=== PATIENT | male | born 1995 | race Caucasian/White ===

== ENCOUNTER 2016-08-11 20:15 | Emergency (ER) | payer BC ==
[2016-08-11] MEDS ORDERED: LORazepam 2 MG/ML MDV IVPUSH ONE (20:47)
[2016-08-11] MEDS ORDERED: Sodium Chloride 0.9% 1,000 ML IV ONE (20:47)
--- NOTE | 2016-08-11 20:47 | EDM.PDOC ---
ED HPI GENERAL MEDICAL PROBLEM - General Chief Complaint: Headache Stated Complaint: HEADACHE Time Seen by Provider: 08/11/16 20:45 Source of Information: Reports: Patient, Family History Limitations: Reports: No Limitations - History of Present Illness INITIAL COMMENTS - FREE TEXT/NARRATIVE: HISTORY AND PHYSICAL: []21-year-old male presenting with headache more to the left side of his head and eye History of Present Illness: [] Family history significant mother and father both had migraines He does feel nausea with this headache Denies any aura prior to the headache starting Significant other does state that he has had this about weekly for the last month Review of Systems: As per history of present illness and below otherwise all systems reviewed and negative. Past medical history: As per history of present illness and as reviewed below otherwise noncontributory. Surgical history: As per history of present illness and as reviewed below otherwise noncontributory. Social history: No reported history of drug or alcohol abuse. Family history: As per history of present illness and as reviewed below otherwise noncontributory. Physical exam: Alert and oriented gentleman does not look to be in severe distress he is not photophobic HEENT: Atraumatic, normocehpalic, pupils reactive, negative for conjunctival pallor or scleral icterus, mucous membranes moist, throat clear, neck supple, nontender, trachea midline. Palpation to his frontal and sinus areas improve the pain Lungs: Clear to auscultation, breath sounds equal bilaterally, chest non tender. Heart: S1S2, regular, negative for clicks, rubs, or JVD. Abdomen: Soft, nondistended, nontender. Negative for masses or hepatossplenmegaly. Negative for costovertebral tenderness. Pelvis: Stable nontender. Genitourinary: Deferred. Rectal: Deferred Extremities: Atraumatic, negative for cords or calf pain. Neurovascular unremarkable. Neuro: Awake, alert, oriented. Cranial nerves II through XII unremarkable. Cerebellum unremarkable. Motor and sensory unremarkable throughout. Exam nonfocal. Diagnostics: [] Therapeutics: [1 L normal saline, Benadryl Compazine, Toradol and Ativan,,] Impression: []Muscle contraction headache versus migraine Plan: [Home Sleep Referral to Dr. Mcgowan] Definitive disposition and diagnosis as appropriate pending reevaluation and review of above. Onset: Today, Sudden Duration: Hour(s): (4) Location: Reports: Head Headache Pain Score (Numeric/FACES): 5 - Related Data Allergies Allergy/AdvReac Type Severity Reaction Status Date / Time No Known Allergies Allergy Verified 08/11/16 20:18 Home Meds: Home Meds . [No Known Home Meds] 08/11/16 [History] Past Medical History HEENT History: Reports: None Cardiovascular History: Reports: None Respiratory History: Reports: None Gastrointestinal History: Reports: None Genitourinary History: Reports: None Musculoskeletal History: Reports: None Psychiatric History: Reports: None - Infectious Disease History Infectious Disease History: Reports: None - Past Surgical History HEENT Surgical History: Reports: None Cardiovascular Surgical History: Reports: None GI Surgical History: Reports: None Social & Family History - Tobacco Use Smoking Status *Q: Current Every Day Smoker Years of Tobacco use: 4 Packs/Tins Daily: 0.9 - Caffeine Use Caffeine Use: Reports: Coffee, Energy Drinks, Soda ED ROS GENERAL - Review of Systems Review Of Systems: ROS reveals no pertinent complaints other than HPI. - Physical Exam Exam: See Below (See dictation) Course - Vital Signs Last Recorded V/S: Last Vital Signs Temp 36.7 C 08/11/16 20:19 Pulse 99 08/11/16 20:19 Resp 20 08/11/16 20:19 BP 144/97 H 08/11/16 20:19 Pulse Ox 99 08/11/16 20:19 - Orders/Labs/Meds Orders: Active Orders 24 hr Category Date Time Status Ondansetron [Zofran] Med 08/11/16 21:31 Once 4 mg IVPUSH ONETIME ONE Sodium Chloride 0.9% [Normal Saline] 1,000 ml Med 08/11/16 20:47 Active IV STAT Medication Orders Sodium Chloride (Normal Saline) 1,000 mls @ 999 mls/hr IV STAT ONE Stop: 08/11/16 21:47 Last Admin: 08/11/16 21:01 Dose: 999 mls/hr Meds: Medications Generic Name Dose Route Start Last Admin Trade Name Freq PRN Reason Stop Dose Admin Sodium Chloride 1,000 mls @ 999 mls/hr 08/11/16 20:47 08/11/16 21:01 Normal Saline IV 08/11/16 21:47 999 mls/hr STAT ONE Administration Discontinued Medications Generic Name Dose Route Start Last Admin Trade Name Stacey PRN Reason Stop Dose Admin Diphenhydramine HCl 25 mg 08/11/16 20:48 08/11/16 21:04 Benadryl IVPUSH 08/11/16 20:49 25 mg ONETIME ONE Administration Prochlorperazine Edisylate 10 52 mls @ 150 mls/hr 08/11/16 20:48 mg/ Sodium Chloride IV 08/11/16 21:08 ONETIME ONE Ketorolac Tromethamine 60 mg 08/11/16 20:48 08/11/16 21:15 Toradol IM 08/11/16 20:49 60 mg ONETIME ONE Administration Ketorolac Tromethamine Confirm 08/11/16 21:23 08/11/16 21:26 Toradol Administered 08/11/16 21:24 Not Given Dose 60 mg .ROUTE .STK-MED ONE Lorazepam 1 mg 08/11/16 20:47 08/11/16 21:06 Ativan IVPUSH 08/11/16 20:48 1 mg ONETIME ONE Administration Morphine Sulfate 2 mg 08/11/16 21:29 Morphine IV 08/11/16 21:30 ONETIME ONE Departure - Departure Time of Disposition: 21:32 Disposition: Home, Self-Care 01 Condition: Good Clinical Impression: Migraine - Discharge Information Instructions: Recurrent Migraine Headache, [id number] Referrals: PCP,None [Primary Care Provider] - Saray Mcgowan MD [Physician] - Forms: ED Department Discharge Additional Instructions: The following information is given to patients seen in the emergency department who are being discharged to home. This information is to outline your options for follow-up care. We provide all patients seen in our emergency department with a follow-up referral. The need for follow-up, as well as the timing and circumstances, are variable depending upon the specifics of your emergency department visit. If you don't have a primary care physician on staff, we will provide you with a referral. We always advise you to contact your personal physician following an emergency department visit to inform them of the circumstance of the visit and for follow-up with them and/or the need for any referrals to a consulting specialist. The emergency department will also refer you to a specialist when appropriate. This referral assures that you have the opportunity for followup care with a specialist. All of these measure are taken in an effort to provide you with optimal care, which includes your followup. Under all circumstances we always encourage you to contact your private physician who remains a resource for coordinating your care. When calling for followup care, please make the office aware that this follow-up is from your recent emergency room visit. If for any reason you are refused follow-up, please contact the [facility] emergency department at and asked to speak to the emergency department charge nurse. Referral has been made for you to see Dr. Saray Mcgowan local neurologist [facility] - Neurology Professional Building [address] [place] [address], [address] [place] [address] - My Orders Last 24 Hours: My Active Orders 08/11/16 20:47 Sodium Chloride 0.9% [Normal Saline] 1,000 ml IV STAT 08/11/16 21:31 Ondansetron [Zofran] 4 mg IVPUSH ONETIME ONE - Assessment/Plan Last 24 Hours: My Active Orders 08/11/16 20:47 Sodium Chloride 0.9% [Normal Saline] 1,000 ml IV STAT 08/11/16 21:31 Ondansetron [Zofran] 4 mg IVPUSH ONETIME ONE
[2016-08-11] MEDS ORDERED: diphenhydrAMINE 50 MG/ML SDV IVPUSH ONE (20:48)
[2016-08-11] MEDS ORDERED: Ketorolac 60 MG/2 ML SDV IM ONE (20:48)
[2016-08-11] MEDS ORDERED: Prochlorperazine 10 MG in Sodium Chloride 0.9% 50 ML IV ONE (20:48)
[2016-08-11] MEDS ORDERED: Ketorolac 60 MG/2 ML SDV ONE (21:23)
[2016-08-11] MEDS ORDERED: Morphine 10 MG/ML Syringe IV ONE (21:29)
[2016-08-11] MEDS ORDERED: Ondansetron 4 MG/2 ML SDV IVPUSH ONE (21:31)
== END 2016-08-11 22:00 | disposition home or self-care (01) ==
LOC: MW.ED 20:15
DX: G43.909 Migraine, unspecified, not intractable, without status migrainosus (principal); F17.210 Nicotine dependence, cigarettes, uncomplicated
CPT/HCPCS: 96361; 96372; 96374; 96375; 99283; J1200; J1885; J2060; J2270; J2405; J7040; 99284

== ENCOUNTER 2017-08-05 19:06 | Emergency (ER) | payer BC ==
[2017-08-05 19:45] VITALS: BP 134/72
--- NOTE | 2017-08-05 19:47 | EDM.PDOC ---
ED HPI GENERAL MEDICAL PROBLEM - General Chief Complaint: Lower Extremity Injury/Pain Stated Complaint: LT ANKLE HURTS Time Seen by Provider: 08/05/17 19:40 - History of Present Illness INITIAL COMMENTS - FREE TEXT/NARRATIVE: HISTORY AND PHYSICAL: History of present illness: The patient is a 22-year-old male who was skateboarding today and fell with his ankle and foot behind him and he landed on it. This occurred about 45 minutes ago and complains of pain at his right ankle. He has no neurosensory changes in his foot and no proximal leg knee or hip pain. He did not hit his head pass out or blackout. He has never injured this ankle before. He last ate food at lunchtime and had some water prior to arrival. He did not take any medications for the pain prior to coming here. The patient says the foot does not hurt Review of systems: As per history of present illness and below otherwise all systems reviewed and negative. Past medical history: As per history of present illness and as reviewed below otherwise noncontributory. Surgical history: As per history of present illness and as reviewed below otherwise noncontributory. Social history: No reported history of drug or alcohol abuse. Family history: As per history of present illness and as reviewed below otherwise noncontributory. Physical exam: General: Well-developed well-nourished man who is nontoxic and vital signs are noted by me. HEENT: Atraumatic, normocephalic, negative for conjunctival pallor or scleral icterus, mucous membranes moist, throat clear, neck supple, nontender, trachea midline. There are no midline step-offs tenderness defects of the cervical spine and no scalp tenderness or defects/deformities Lungs: Clear to auscultation, breath sounds equal bilaterally, chest nontender. Heart: S1S2, regular rate and rhythm no overt murmurs Abdomen: Soft, nondistended, nontender. NABS Pelvis: Stable nontender. No lateral hip tenderness on the right Genitourinary: Deferred. Rectal: Deferred. Extremities: Atraumatic with full range of motion of all extremities with the exception of the right ankle and foot. At the right ankle there is diffuse circumferential swelling and a superficial abrasion on the medial malleolus. There is ecchymosis extending into the dorsal aspect of the foot laterally but there is no bony tenderness in this region. Pulses are intact toes are normal color and there is good cap refill. There is no proximal tib-fib tenderness knee thigh or hip tenderness. There is diffuse tenderness at the ankle and it is difficult to evaluate clinically if there is joint malalignment due to the soft tissue swelling. The legs are, negative for cords or calf pain. Neurovascular unremarkable. Neuro: Awake, alert, oriented. Cranial nerves II through XII unremarkable. Cerebellum unremarkable. Motor and sensory unremarkable throughout. Exam nonfocal. Back: There are no midline step-offs tenderness defects of the thoracic lumbar spine no posterior rib tenderness Diagnostics: X-ray of right ankle, foot, 1 view right tib-fib Therapeutics: Ice pack and elevation, patient initially deferred pain meds Short-leg post mold and crutches 2027: Case was discussed with Dr. Bess Faye our orthopedic surgeon and she would like a short-leg post mold crutches and follow-up in the clinic next week with . The patient has been shown his x-rays and is aware of the care plan and I will write him for pain medications for home as well. He understands he is nonweightbearing Impression: Minimally displaced mildly comminuted fracture of the distal diaphysis of the right fibula Definitive disposition and diagnosis as appropriate pending reevaluation and review of above. Left Lower Ankle Pain Score (Numeric/FACES): 4 - Related Data Allergies Allergy/AdvReac Type Severity Reaction Status Date / Time No Known Allergies Allergy Verified 08/05/17 19:24 Home Meds: Home Meds . [No Known Home Meds] 08/11/16 [History] Past Medical History - Past Health History Medical/Surgical History: Denies Medical/Surgical History HEENT History: Reports: None Cardiovascular History: Reports: None Respiratory History: Reports: None Gastrointestinal History: Reports: None Genitourinary History: Reports: None Musculoskeletal History: Reports: None Psychiatric History: Reports: None - Infectious Disease History Infectious Disease History: Reports: None - Past Surgical History HEENT Surgical History: Reports: None Cardiovascular Surgical History: Reports: None GI Surgical History: Reports: None Social & Family History - Family History Family Medical History: Noncontributory - Tobacco Use Smoking Status *Q: Current Every Day Smoker Years of Tobacco use: 4 Packs/Tins Daily: 0.5 - Caffeine Use Caffeine Use: Reports: Coffee - Recreational Drug Use Recreational Drug Use: Yes Drug Use in Last 12 Months: Yes Recreational Drug Type: Reports: Marijuana/Hashish Review of Systems - Review of Systems Review Of Systems: ROS reveals no pertinent complaints other than HPI. ED EXAM, GENERAL - Physical Exam Exam: See Below (See dictation) Course - Vital Signs Last Recorded V/S: Last Vital Signs Temp 37.1 C 08/05/17 19:26 Pulse 91 08/05/17 19:26 Resp 16 08/05/17 19:26 BP 134/72 08/05/17 19:26 Pulse Ox 99 08/05/17 19:26 - Orders/Labs/Meds Orders: Active Orders 24 hr Category Date Time Status Ankle Min 3V Rt [CR] Stat Exams 08/05/17 19:44 Taken Foot 2V Rt [CR] Stat Exams 08/05/17 19:44 Taken Tibia Fibula Rt [CR] Stat Exams 08/05/17 19:44 Taken DME for Discharge [COMM] Stat Oth 08/05/17 20:30 Ordered Departure - Departure Time of Disposition: 20:33 Disposition: Home, Self-Care 01 Condition: Good Clinical Impression: Fracture, fibula Qualifiers: Encounter type: initial encounter Fibula location: distal Fracture type: closed Fracture morphology: unspecified fracture morphology Laterality: right Qualified Code(s): S82.831A - Other fracture of upper and lower end of right fibula, initial encounter for closed fracture - Discharge Information Referrals: PCP,None [Primary Care Provider] - Forms: ED Department Discharge Additional Instructions: The following information is given to patients seen in the emergency department who are being discharged to home. This information is to outline your options for follow-up care. We provide all patients seen in our emergency department with a follow-up referral. The need for follow-up, as well as the timing and circumstances, are variable depending upon the specifics of your emergency department visit. If you don't have a primary care physician on staff, we will provide you with a referral. We always advise you to contact your personal physician following an emergency department visit to inform them of the circumstance of the visit and for follow-up with them and/or the need for any referrals to a consulting specialist. The emergency department will also refer you to a specialist when appropriate. This referral assures that you have the opportunity for followup care with a specialist. All of these measure are taken in an effort to provide you with optimal care, which includes your followup. Under all circumstances we always encourage you to contact your private physician who remains a resource for coordinating your care. When calling for followup care, please make the office aware that this follow-up is from your recent emergency room visit. If for any reason you are refused follow-up, please contact the [facility] emergency department at and ask to speak to the emergency department charge nurse. [facility]--Orthopedic clinic Professional Building [address] [place] [id number] Ice and elevate the area as much as possible and do not weight-bear. Leave splint that is placed in the ED on into you follow-up in the clinic and use crutches at all times. Use [id number] ibuprofen for pain and at the stronger pain medications you have been prescribed as needed. Return to ER as needed and as discussed. Please call the orthopedics clinic at 8 AM on Tuesday for follow-up appointment with Dr. Vincent. - My Orders Last 24 Hours: My Active Orders 08/05/17 19:44 Ankle Min 3V Rt [CR] Stat Foot 2V Rt [CR] Stat Tibia Fibula Rt [CR] Stat 08/05/17 20:30 DME for Discharge [COMM] Stat - Assessment/Plan Last 24 Hours: My Active Orders 08/05/17 19:44 Ankle Min 3V Rt [CR] Stat Foot 2V Rt [CR] Stat Tibia Fibula Rt [CR] Stat 08/05/17 20:30 DME for Discharge [COMM] Stat
--- NOTE | 2017-08-08 09:30 | CR ---
EXAM DATE: 08/05/17 PATIENT'S AGE: 22 Patient: HUGO CHAPPELL Facility: [place], [place] Site . Site : 1995 Study: XRay Extremity Right [id number]/22/2018 8:03:12 PM Ordering Physician: Poly Long Final Report: Indication: Lower leg injury Technique: Three views right ankle Comparison: None Findings: Bones: Minimally displaced mildly comminuted fracture of the distal diaphysis of the right fibula. Mild surrounding soft tissue swelling. Joint spaces: Unremarkable. Soft tissues: Unremarkable. Impression: Minimally displaced mildly comminuted fracture of the distal diaphysis of the right fibula. Dictated by Beatriz Norris MD @ Aug 05 2017 8:16PM (Electronic Signature) Report Signed by Proxy. TORI
--- NOTE | 2017-08-08 09:31 | CR ---
EXAM DATE: 08/05/17 PATIENT'S AGE: 22 Patient: HUGO CHAPPELL Facility: [place], [place] Site . Site : 1995 Study: XRay Extremity Right [id number]/22/2018 8:03:54 PM Ordering Physician: Poly Long Final Report: Indication: Fibular fracture Technique: Frontal view right tibia and fibula Comparison: Correlation with ankle radiographs performed at the same time Findings/impression: Frontal view of the right tibia and fibula do not include the medial aspect of the medial malleolus and the lateral aspect of the lateral malleolus. A mildly displaced fracture through the distal diaphysis of the right fibula again noted. No additional fracture identified. Dictated by Beatriz Norris MD @ Aug 05 2017 8:56PM (Electronic Signature) Report Signed by Proxy. TORI
--- NOTE | 2017-08-08 09:32 | CR ---
EXAM DATE: 08/05/17 PATIENT'S AGE: 22 Patient: HUGO CHAPPELL Facility: [place], [place] Site . Site : 1995 Study: XRay Extremity Right [id number]/22/2018 8:04:23 PM Ordering Physician: Poly Long Final Report: Indication: Injury Technique: Two views right foot Comparison: None Findings: Bones: Alignment is normal. No fractures or bone lesions within the right foot. There is partial visualization of a distal right fibular fracture. Joint spaces: Unremarkable. Soft tissues: Unremarkable. Impression: No foot fracture or subluxation Partial visualization of a distal right fibular fracture Dictated by Beatriz Norris MD @ Aug 05 2017 8:17PM (Electronic Signature) Report Signed by Proxy. TORI
== END 2017-08-05 21:05 | disposition home or self-care (01) ==
LOC: MW.ED 19:06
DX: S82.831A Other fracture of upper and lower end of right fibula, initial encounter for closed fracture (principal); V00.131A Fall from skateboard, initial encounter; F17.210 Nicotine dependence, cigarettes, uncomplicated
CPT/HCPCS: 73590-26-RT; 73590-RT; 73610-26-RT; 73610-RT; 73620-26-RT; 73620-RT; 99283

== ENCOUNTER 2017-08-10 12:55 | Day surgery (SDC) | payer BC ==
[~2017-08-10 12:55] MED LIST: Lactated Ringers 1,000 ML IV SCH; ceFAZolin 2 GM in Premix Bag 1 BAG IV SCH
[2017-08-10] MEDS ORDERED: Propofol 200 MG/20 ML SDV ONE (14:03)
[2017-08-10] MEDS ORDERED: Midazolam 1 MG/ML 2 ML SDV ONE (14:03)
[2017-08-10] MEDS ORDERED: fentaNYL 100 MCG/2 ML SDV ONE (14:03)
[2017-08-10] MEDS ORDERED: fentaNYL 250 MCG/5 ML SDV ONE (14:03)
[2017-08-10] MEDS ORDERED: Ketorolac 30 MG/ML SDV ONE (14:04)
[2017-08-10] MEDS ORDERED: Ondansetron 4 MG/2 ML SDV ONE (14:04)
[2017-08-10] MEDS ORDERED: HYDROmorphone 2 MG/ML SDV ONE (14:08)
--- NOTE | 2017-08-10 14:12 | PCM.PREANE ---
Preanesthetic Assessment - Anesthesia/Transfusion/Family Hx Anesthesia History: No Prior Anesthesia Family History of Anesthesia Reaction: No Transfusion History: No Prior Transfusion(s) Intubation History: Unknown - Review of Systems General: No Symptoms Pulmonary: No Symptoms Cardiovascular: No Symptoms Gastrointestinal: No Symptoms Neurological: No Symptoms Other: Reports: None - Physical Assessment Height: 1.75 m Weight: 74.843 kg ASA Class: 2 Mental Status: Alert & Oriented x3 Airway Class: Mallampati = 2 Dentition: Reports: Normal Dentition (bad dentition) Thyro-Mental Finger Breadths: 3 Mouth Opening Finger Breadths: 3 ROM/Head Extension: Full Lungs: Clear to Auscultation, Normal Respiratory Effort Cardiovascular: Regular Rate, Regular Rhythm - Allergies Allergies/Adverse Reactions: Allergies Allergy/AdvReac Type Severity Reaction Status Date / Time No Known Allergies Allergy Verified 08/08/17 16:43 - Blood Blood Available: No - Anesthesia Plan Pre-Op Medication Ordered: None - Acknowledgements Anesthesia Type Planned: General Anesthesia Pt an Appropriate Candidate for the Planned Anesthesia: Yes Alternatives and Risks of Anesthesia Discussed w Pt/Guardian: Yes Pt/Guardian Understands and Agrees with Anesthesia Plan: Yes PreAnesthesia Questionnaire - Past Health History Medical/Surgical History: Denies Medical/Surgical History HEENT History: Reports: None Cardiovascular History: Reports: None Respiratory History: Reports: None Gastrointestinal History: Reports: None Genitourinary History: Reports: None Musculoskeletal History: Reports: Other (See Below) (high right fibula fx) Neurological History: Reports: Migraines Psychiatric History: Reports: None - Infectious Disease History Infectious Disease History: Reports: None - Past Surgical History HEENT Surgical History: Reports: None Cardiovascular Surgical History: Reports: None GI Surgical History: Reports: None - SUBSTANCE USE Smoking Status *Q: Current Every Day Smoker (1< ppd) Tobacco Use Within Last Twelve Months: Cigarettes Recreational Drug Use History: No - HOME MEDS Home Medications: Home Meds Hydrocodone/Acetaminophen [[place] 7.5-325 Tablet] 1 tab PO ASDIRECTED PRN [History] - CURRENT (IN HOUSE) MEDS Current Meds: Current Medications Lactated Ringer's (Ringers, Lactated) 1,000 mls @ 125 mls/hr IV ASDIRECTED JENNIFER Cefazolin Sodium/Dextrose 2 gm (/ Premix) 50 mls @ 50 mls/hr IV ONETIME JENNIFER Discontinued Medications Fentanyl (Sublimaze) Confirm Administered Dose 100 mcg .ROUTE .STK-MED ONE Stop: 08/10/17 14:04 Fentanyl (Sublimaze) Confirm Administered Dose 250 mcg .ROUTE .STK-MED ONE Stop: 08/10/17 14:04 Lidocaine HCl (Xylocaine-Mpf 1%) Confirm Administered Dose 10 mls @ as directed .ROUTE .STK-MED ONE Stop: 08/10/17 14:05 Ketorolac Tromethamine (Toradol) Confirm Administered Dose 30 mg .ROUTE .STK- MED ONE Stop: 08/10/17 14:05 Midazolam HCl (Versed 1 Mg/Ml) Confirm Administered Dose 2 mg .ROUTE .STK-MED ONE Stop: 08/10/17 14:04 Ondansetron HCl (Zofran) Confirm Administered Dose 4 mg .ROUTE .STK-MED ONE Stop: 08/10/17 14:05 Propofol (Diprivan 20 Ml) Confirm Administered Dose 400 mg .ROUTE .STK-MED ONE Stop: 08/10/17 14:04
[2017-08-10] MEDS ORDERED: Neostigmine Methylsulfate 1 MG/ML 5 ML Syringe ONE (14:29)
[2017-08-10] MEDS ORDERED: Glycopyrrolate 0.2 MG/ML SDV ONE (14:29)
[2017-08-10] MEDS ORDERED: fentaNYL 100 MCG/2 ML SDV IVPUSH PRN (16:06)
--- NOTE | 2017-08-10 16:18 | PCM.OPNOTE ---
- General Post-Op/Procedure Note Date of Surgery/Procedure: 08/10/17 Operative Procedure(s): ORIF right ankle lateral malleolus and syndesmosis Findings: comminution Pre Op Diagnosis: right ankle lateral malleolus fx with syndesmotic disruption Post-Op Diagnosis: same Anesthesia Technique: General LMA Primary Surgeon: Moody Hernandez Mai Automatic Folder Seamer: Inez Schmidt EBL in mLs: 10 Complications: none Condition: Good
[2017-08-10] MEDS ORDERED: Acetaminophen/HYDROcodone 325-5 MG Tab ONE (16:20)
--- NOTE | 2017-08-10 17:08 | OR ---
SURGEON: Moody Vincent MD DATE OF PROCEDURE: 08/10/2017 WAIVER ANALYST: Inez Schmidt PA-C. PREOPERATIVE DIAGNOSIS: Right ankle lateral malleolus fracture with syndesmotic disruption. POSTOPERATIVE DIAGNOSIS: Right ankle lateral malleolus fracture with syndesmotic disruption. OPERATION PERFORMED: Open reduction internal fixation, right ankle lateral malleolus and syndesmosis. ANESTHESIA: General with LMA. COMPLICATIONS: None . ESTIMATED BLOOD LOSS: 10 mL. TOURNIQUET TIME: 21 minutes. SPECIMENS: None. IMPLANTS: Evangelina 9 hole 1/3rd tubular plate, one 3.5 interfragmentary screw, five 3.5 cortical screws, and one 4-0 cancellous screw, and Dea ZipTight ankle syndesmotic fixation device. INDICATIONS: Patient is a 22-year-old male who broke his ankle skateboarding. Due to displacement and syndesmotic disruption, I recommended operative fixation. He wished to undergo surgery. He understands the risks, benefits, complications of procedure including but not limited to infection, neurovascular injury, continued pain, malunion, nonunion, superficial peroneal nerve injury, and he wished to proceed. PROCEDURE IN DETAIL: The patient was seen in the preoperative area. The operative site was marked. The patient was transferred to operating room, and placed supine on the operative table. General anesthesia was induced and LMA was placed. He received preop antibiotics, Ancef. Splint was removed. A well-padded upper thigh tourniquet was placed. The right leg was prepped and draped in sterile fashion using alcohol followed by ChloraPrep. A formal time-out was taken, identifying the correct patient, procedure, and extremity. Limb was exsanguinated with an Esmarch bandage. Tourniquet inflated to 250 mmHg. A 10 cm incision centered over the fibula was made starting at the tip of the lateral malleolus. Dissection carried down to subcutaneous tissues. The superficial peroneal nerve was found proximally, it was protected and pulled proximally. It had a branch that went off posteriorly and a very tiny branch across the distal aspect of the fibula, which was sacrificed and then subperiosteal dissection over the fibula was made. He had comminution of the fragment posteriorly and had an anterior inferior to posterior superior fracture. It was very long and proximal 2/3rd was broken. The fracture was curetted out, irrigated, and a reduction clamp was used to reduce it anatomically. An interfragmentary screw was placed after drilling 3.5 and 2.5 drill bits with 2.5 cortical screw. A 9- hole plate was then placed on it laterally. Proximal and distal 3.5 screws were placed bicortically and then 2 more bicortical 3.5 screws and one 3.5 bicortical screw was placed distally and a 4-0 cancellous. Under fluoroscopic control, external rotation stress view was confirmed opening of the syndesmosis, therefore a tiny stab incision was made medially and clamp was placed on the plate and screws and then the medial aspect. The ankle was reduced and under fluoroscopic control, a drill bit was placed across all 4 cortices, 1.5 cm above the ankle joint and then the ZipTight syndesmotic fixation device was passed and tightened down and tied. X-ray with external rotation confirmed no further opening of the syndesmosis but just some opening at the deltoid ligament. Tourniquet was then deflated, hemostasis was obtained. The subcutaneous tissues closed with 2-0 Vicryl, skin with lisa. Xeroform was placed and a Donte splint. The patient was extubated in the operating room and transferred to recovery room in stable condition. All sponge and needle counts correct at the end of the case. No complications. Kept nonweightbearing in a splint. SHAILESH WALDROP /[id number]
--- NOTE | 2017-08-10 17:17 | PCM.POSTAN ---
POST ANESTHESIA ASSESSMENT - MENTAL STATUS Mental Status: Alert, Oriented - VITAL SIGNS Pulse Rate: 50 SaO2: 98 (room air) Resp Rate: 84 Blood Pressure: 132/66 - RESPIRATORY Respiratory Status: Respiratory Rate WNL, Airway Patent, O2 Saturation Stable - CARDIOVASCULAR CV Status: Pulse Rate WNL, Blood Pressure Stable - GASTROINTESTINAL GI Status: No Symptoms - PAIN Pain Score: 4 - POST OP HYDRATION Hydration Status: Adequate & Stable
[2017-08-10] MEDS ORDERED: Acetaminophen/HYDROcodone 325-5 MG Tab PO ONE (17:45)
--- NOTE | 2017-08-11 06:56 | PCM48HPAN ---
Post Anesthesia Note - EVALUATION WITHIN 48HRS OF ANESTHETIC Vital Signs in Normal Range: Yes Patient Participated in Evaluation: Yes Respiratory Function Stable: Yes Airway Patent: Yes Cardiovascular Function Stable: Yes Hydration Status Stable: Yes Pain Control Satisfactory: Yes Nausea and Vomiting Control Satisfactory: Yes Mental Status Recovered: Yes Pulse Rate: 50 Resp Rate: 16 Blood Pressure: 132/66
[2017-08-11 06:57] VITALS: BP 132/66
--- NOTE | 2017-08-11 09:46 | CR ---
EXAMINATION: Right ankle HISTORY: ORIF COMPARISON: 05/04/2017 TECHNIQUE: 5 fluoroscopic images provided FINDINGS/IMPRESSION: Operative control films demonstrate placement of screw and plate hardware fixati ng a distal fibular fracture. A syndesmotic anchor is also noted.
== END 2017-08-10 18:05 | disposition home or self-care (01) ==
LOC: MW.SDS 12:55
PROVIDERS: ATTEND Orthopaedic Surgery
PROC: 0QSJ04Z Reposition Right Fibula with Internal Fixation Device, Open Approach (ICD-10-PCS; principal; 2017-08-10)
DX: S82.61XA Displaced fracture of lateral malleolus of right fibula, initial encounter for closed fracture (principal); V00.131A Fall from skateboard, initial encounter
CPT/HCPCS: 27792; 76000; A9270; J1170; J1885; J2250; J2405; J3010; J7120; C1713; C1776; J2704